=== PATIENT | female | born 1970 | race Caucasian/White ===

== ENCOUNTER → 2021-02-02 15:26 | Outpatient (BNVA) | payer SELFPAY | PROVIDERS: Family Provider Nurse Practitioner Family; Referring Provider Dermatology; Visit Provider Podiatrist Foot & Ankle Surgery | DX: M25.572 Pain in left ankle and joints of left foot (principal); M25.571 Pain in right ankle and joints of right foot; M21.612 Bunion of left foot; M21.611 Bunion of right foot | CPT/HCPCS: 77077 ==

== ENCOUNTER 2021-09-24 08:56 | Emergency (ER) | payer SELFPAY ==
[2021-09-24 09:09] VITALS: BP 112/80; PULSE 122; RESP 16; TEMP 36.8; O2SAT 98; BMI 25.0
--- NOTE | 2021-09-24 09:30 | ED_ITS ---
HPI - Back Pain/Injury General: Chief Complaint: Back Pain/Injury Stated Complaint: back spasms Time Seen by Provider: 09/24/21 09:15 Source: patient Mode of arrival: ambulatory History of Present Illness: 51-year-old female who presents to the emergency room complaining of back spasms began last night. She did not have any popping sensation. No history of previous back issues she remains still in certain positions she will not have any pain but if she moves wrong or quickly she describes sharp spasm-like back pain mostly on the left side she will have a little bit of discomfort radiating into her left upper leg. No difficulty with bowel or bladder. Onset (ago): hour(s) Timing: constant Severity: severe Quality: spasming Location: lumbar spine and left lower back Radiation: left upper leg Exacerbating factors: none Context: bending Associated symptoms: Reports tingling/numbness/burning; Deny abdominal pain, arthralgias, chills, change in bowel habits, difficulty walking, dysuria, fatigue, fecal incontinence, fever(s), hematuria, myalgias, nausea, numbness, syncope, urinary frequency, urinary urgency, vomiting or weakness Work related injury: No Review of Systems Const: Denies: fever(s), chills or fatigue ENMT: Denies: throat pain, ear or mastoid pain, nasal discharge or nasal congestion Card: Denies: syncope Resp: Denies: dyspnea, productive cough or non-productive cough GI: Denies: abdominal pain, nausea, vomiting, fecal incontinence or change in bowel habits : Denies: dysuria, urinary urgency or hematuria Skin/Breast: Denies: rash or pruritus Neuro: Denies: difficulty walking [facility] ED PFSH: Medical History (Updated 09/24/21 @ 10:26 by Nikos Kate DO) No pertinent past medical history Surgical History (Updated 09/24/21 @ 09:37 by Nikos Kate DO) No pertinent past surgical history Family History (Updated 02/02/21 @ 15:41 by Rohith Levine LPN) Father Bunion Social History Smoking and tobacco status: never smoked Physical Exam Const: COMMON NORMALS: no acute distress GENERAL APPEARANCE: cooperative and comfortable ORIENTATION/CONSCIOUSNESS: Yes awake, Yes oriented to person, Yes oriented to place and Yes oriented to time HENMT: COMMON NORMALS: normocephalic and atraumatic HEAD & SCALP: normocephalic and atraumatic Neck/C-Spine: COMMON NORMALS: no JVD Resp: COMMON NORMALS: normal respiratory effort, No retractions, No use of accessory muscles and clear to auscultation bilaterally AUSCULTATION: clear to auscultation bilaterally Cardio: COMMON NORMALS: no JVD, regular rate, regular rhythm and No murmurs present (Cardio) RATE: regular rate RHYTHM: regular rhythm GI: COMMON NORMALS: Soft to palpation and No hepatosplenomegaly present AUSCULTATION: Yes normoactive bowel sounds PALPATION: Yes Soft to palpation, No Tenderness to palpation present (GI), No Guarding due to palpation present (GI) and Yes No hepatosplenomegaly present Extremity: COMMON NORMALS: normal to inspection, capillary refill normal, no clubbing, cyanosis or edema, no calf tenderness and no pedal edema Neuro: SENSORIUM/ORIENTATION: Yes oriented to person, Yes oriented to place and Yes oriented to time MOTOR EXAM: 5/5 motor strength present throughout DEEP TENDON REFLEXES: Right patellar reflex intensity grade: 2+ and Left patellar reflex intensity grade: 2+ Skin: COMMON NORMALS: no rashes or lesions noted GENERAL SKIN EXAM: no rashes or lesions noted Course Vital Signs: Vital signs: Vital Signs Temperature 98.3 F 09/24/21 09:09 Pulse Rate 84 09/24/21 11:03 Respiratory Rate 16 09/24/21 11:03 Blood Pressure 116/74 09/24/21 11:03 Pulse Oximetry 93 09/24/21 11:03 MDM - Back Pain/Injury Medical Decision Making Patient is feeling better but her symptoms not completely resolved I was able to do straight leg raising test further in bed after she received medications which was negative. Wearing [place] discharge patient home prednisone taper muscle relaxers anti-inflammatories and hydrocodone as needed follow-up with primary care if not improving. Medical Records I reviewed the patient's medical records. Discharge Plan Discharge Patient Disposition: Home Clinical Impression: Strain of lumbar region Condition: Stable Prescriptions: New hydrocodone-acetaminophen 5-325 mg tablet 1 tab PO Q6H PRN (Reason: pain) Qty: 15 0RF diclofenac sodium 75 mg tablet,delayed release (DR/EC) 75 mg PO Q12H PRN (Reason: pain) Qty: 20 0RF tizanidine 4 mg capsule 4 mg PO Q8H PRN (Reason: muscle spasticity) Qty: 20 0RF prednisone 20 mg tablet 20 mg PO TID Qty: 15 0RF Rx Instructions: 1 p.o. 3 times daily x3 days, 1 p.o. twice daily x2 days, 1 p.o. daily x2 days No Action multivitamin Tablet 1 tab PO DAILY 0RF Discharge Orders: Discharge ED (Routine); Ordered 09/24/21 Ordered By: Nikos Kate Referrals: Licha Lorenzana FNP [Family Provider] - Discharge Diet: Usual diet Discharge Activity: Increase activity as tolerated Patient Instructions: Opioid Safety Activity Restrictions/Additional Instructions: Avoid heavy lifting no lifting greater than 5 to 10 pounds. No bending or stooping. Follow-up with your primary care doctor if not improving in next 5 to 7 days. 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
[2021-09-24] MEDS: orphenadrine 30 mg/mL Inj 2 mL 60 MG IVP (09:54)
[2021-09-24] MEDS: ketorolac 30 mg/mL INJ IVP (09:54)
[2021-09-24] MEDS: dexamethasone 10 mg/mL INJ IVP (10:00)
[2021-09-24 10:03] VITALS: RESP 15
[2021-09-24] MEDS: morphine 4 mg/mL SDV 1 mL 6 MG IVP (10:03)
[2021-09-24 10:49] VITALS: RESP 14
[2021-09-24 11:03] VITALS: BP 116/74; PULSE 84; RESP 16; O2SAT 93
== END 2021-09-24 11:04 | disposition home or self-care (01) ==
PROVIDERS: Emergency Provider Family Medicine
DX: S39.012A Strain of muscle, fascia and tendon of lower back, initial encounter (principal); X58.XXXA Exposure to other specified factors, initial encounter
CPT/HCPCS: 96374; 96375; 99283; J1100; J1885; J2270; J2360

== ENCOUNTER 2022-03-21 14:46 | Outpatient (CLI) | payer OTHER, SELFPAY ==
--- NOTE | 2022-03-21 14:54 | MR_ITS ---
WS: [id number] MRI LUMBAR SPINE NONCONTRAST HISTORY: CHRONIC BACK PAIN X 3 MONTHS DURATION COMPARISON: None available. TECHNIQUE: Sagittal and axial multisequence imaging is submitted. Normal lumbar alignment with no compression fractures or marrow edema. Very minimal disc desiccation at L4-5. Conus terminates normally at L1-2 disc level. L1-L2: Normal. L2-L3: Normal. L3-L4: Very minimal ligamentum flavum hypertrophy. No stenosis. L4-L5: Very tiny central disc protrusion and ligamentum flavum hypertrophy. No stenosis. L5-S1: Small RIGHT foraminal disc protrusion. Does not appear to be contacting the nerve roots. No si gnificant stenosis. Mild facet arthritis. MR/MR lumbar spine wo con* [id number] IMPRESSION: 1. No significant central or foraminal stenosis. 2. Small RIGHT foraminal disc protrusion at L5-S1 with no contact on the nerve roots. 3. Tiny central disc protrusion at L4-5.
== END 2022-03-21 14:47 | disposition home or self-care (01) ==
LOC: RAD 14:47
PROVIDERS: PCP Nurse Practitioner Family; Visit Provider Nurse Practitioner Family
DX: M51.27 Other intervertebral disc displacement, lumbosacral region (principal); M51.26 Other intervertebral disc displacement, lumbar region
CPT/HCPCS: 72148